=== PATIENT | female | born 1945 | race Hispanic/Latino ===

== ENCOUNTER → 2020-05-23 | Outpatient (CLI) | payer OTHER | END | disposition home or self-care (01) | LOC: RAH 10:21 | PROVIDERS: ATTEND Family Medicine | DX: Z12.31 Encounter for screening mammogram for malignant neoplasm of breast (principal); N64.89 Other specified disorders of breast | CPT/HCPCS: 77067 ==

== ENCOUNTER → 2023-01-11 | Outpatient (CLI) | payer OTHER | END | disposition home or self-care (01) | LOC: RAH 12:45 | PROVIDERS: ATTEND Family Medicine | DX: N64.4 Mastodynia (principal) | CPT/HCPCS: 77066 ==

== ENCOUNTER → 2024-01-13 | Outpatient (CLI) | payer OTHER | END | disposition home or self-care (01) | LOC: RAH 07:52 | PROVIDERS: ATTEND Family Medicine | DX: Z12.31 Encounter for screening mammogram for malignant neoplasm of breast (principal) | CPT/HCPCS: 77067 ==

== ENCOUNTER → 2024-03-12 | Outpatient (CLI) | payer OTHER | END | disposition home or self-care (01) | LOC: RAH 13:51 | PROVIDERS: ATTEND Family Medicine | DX: R60.9 Edema, unspecified (principal) | CPT/HCPCS: 93925 ==

== ENCOUNTER → 2024-04-12 | Outpatient (CLI) | payer OTHER | END | disposition home or self-care (01) | LOC: RAH 07:52 | PROVIDERS: ATTEND Family Medicine | DX: M81.0 Age-related osteoporosis without current pathological fracture (principal); Z78.0 Asymptomatic menopausal state | CPT/HCPCS: 77080 ==

== ENCOUNTER → 2025-01-14 | Outpatient (CLI) | payer OTHER ==
--- NOTE | 2025-01-14 10:16 | HMCIMG ---
Exam Type: MAMMO SCREENING BILATERAL Clinical Information: ANNUAL SCREENING Comparison: January 13, 2024 Technique: Mammogram with CAD was performed with CC and MLO projections. CAD shows no worrisome regions. FINDINGS: The breasts are heterogeneously dense, which may obscure small masses. No dominant mass or suspicious microcalcification identified. There is no nipple retraction or skin thickening. Benign-appearing calcifications are seen. CAD shows no worrisome regions. IMPRESSION: 1. No mammographic signs of malignancy. 2. Routine follow-up recommended. CATEGORY 2: BENIGN FINDINGS Note: A negative x-ray should not delay biopsy if a dominant or clinically suspicious mass is present, since 8-10% of cancers are not identified by mammography. Dense breasts may obscure an underlying neoplasm.
== END | disposition home or self-care (01) ==
LOC: RAH 09:38
PROVIDERS: ATTEND Family Medicine
DX: Z12.31 Encounter for screening mammogram for malignant neoplasm of breast (principal); R92.333 Mammographic heterogeneous density, bilateral breasts; R92.1 Mammographic calcification found on diagnostic imaging of breast
CPT/HCPCS: 77067

== ENCOUNTER → 2025-06-12 | Outpatient (CLI) | payer OTHER ==
--- NOTE | 2025-06-13 07:29 | HMCIMG ---
EXAMINATION: SPECTRAL DOPPLER ULTRASOUND EXAMINATION OF THE LEFT LOWER EXTREMITY VEINS. CLINICAL HISTORY: Swelling, to rule out DVT. COMPARISON: None provided. TECHNIQUE: Real-time ultrasound scan of the veins of the left lower extremity with color Doppler flow, spectral waveform analysis and compression. FINDINGS: DEEP VEINS: The common femoral, superficial femoral, and popliteal veins are echolucent and compressible. There is normal color Doppler flow throughout. The visualized calf veins appear patent. SUPERFICIAL VEINS: The greater saphenous vein is patent and compressible. SOFT TISSUES: No popliteal fossa cyst. There is an enlarged lymph node that measures 3.5 x 0.9 x 1.7 cm in the left inguinal region. Hilar echoes are maintained. No increased vascularity. IMPRESSION: No deep venous thrombosis evident in the left lower extremity. No superficial thrombophlebitis in the left lower extremity. Left inguinal lymphadenopathy /[place]
== END | disposition home or self-care (01) ==
LOC: RAH 14:59
PROVIDERS: ATTEND Family Medicine
DX: I82.4Z2 Acute embolism and thrombosis of unspecified deep veins of left distal lower extremity (principal); R22.42 Localized swelling, mass and lump, left lower limb
CPT/HCPCS: 93971

== ENCOUNTER → 2025-07-19 | Outpatient (CLI) | payer OTHER ==
--- NOTE | 2025-07-19 17:22 | HMCSR ---
APPROVED REPORT EXAM: Two-dimensional and M-mode echocardiogram with Doppler and color Doppler. INDICATION ICD: I10 Essential hypertension 2D Dimensions RVDd 4.0 cm LVEF(%) 62.0 (>50%) LVED Vol(simp.) 79.0 mL IVSd 1.0 (0.7-1.1cm) FS(%) 33 % LVES Vol(simp.) 25.0 mL LVDd 3.9 (3.8-5.6cm) LA (2D) 3.6 (1.6-4.0cm) LVEF(%, simp.) 68 % PWd 1.0 (0.7-1.1cm) Ao Root(2D) 3.0 (2.0-3.7cm) LA ESV INDEX (BP) 30.66 mL/m2 IVSs 1.0 cm LVOT diam 2.0 (1.8-2.4cm) LVDs 2.6 (2.5-4.0cm) IVC diam 1.7 cm PWs 1.1 cm M-Mode Dimensions EPSS 0.5 cm LA (MM) 3.7 (1.6-4.0cm) Ao Root(MM) 2.9 (2.0-3.7cm) Aortic Valve AoV Vmax 1.8 m/s Ao Peak GR 12.6 mmHg LVOT Vmax 1.5 m/s AoV VTI 0.3 m Ao Mean GR 6.1 mmHg LVOT VTI 0.29 m TITI (VMAX) 2.81 cm2 TITI (VTI) 3.1 cm2 Mitral Valve MV E Vmax 74.3 cm/s DECEL Time 273 ms MV A Vmax 105.1 cm/s P 1/2 T 49 ms E/A ratio 0.7 MVA (PHT) 4.5 cm2 TDI E/E' Medial 15.1 E/E' Lateral 11.9 Medial E' Peak V 4.93 cm/s Lateral E' Peak V 6.26 cm/s Pulmonary Valve PV Vmax 1.0 m/s PV VTI 0.21 m PV Mean GR 2.5 mmHg PV Peak GR 4.0 mmHg PI End Ynes. Kwabena 94.9 cm/s Tricuspid Valve TR Vmax 2.6 m/s RAP (EST) 3 mmHg RVSP 30.1 mmHg TR Peak GR 27.1 mmHg Left Ventricle The left ventricle is normal size. There is normal LV segmental wall motion. There is normal left ventricular wall thickness. The LVEF is > 65%. Stage I diastolic dysfunction. Right Ventricle The right ventricle is normal size. The right ventricular systolic function is normal. Atria The left atrium size is normal. The right atrium size is normal. Aortic Valve The aortic valve is trileaflet normal in structure. No aortic regurgitation is present. There is no aortic valvular stenosis. Mitral Valve The mitral valve is normal in structure. There is no mitral valve regurgitation noted. There is mild mitral valve stenosis. Tricuspid Valve The tricuspid valve is normal in structure. There is no tricuspid valve regurgitation noted. Pulmonic Valve The pulmonary valve is normal in structure. There is trace of pulmonic valvular regurgitation. Great Vessels The aortic root is normal in size. The IVC is normal in size and collapses >50% with inspiration. Pericardium There is no pericardial effusion. Other Information Quality : Technically difficult study due to body habitus Conclusion The LVEF is > 65%. There is normal LV segmental wall motion. Stage I diastolic dysfunction. The aortic root is normal in size. There is no pericardial effusion.
== END | disposition home or self-care (01) ==
LOC: RAH 13:41
PROVIDERS: ATTEND Family Medicine
DX: I05.0 Rheumatic mitral stenosis (principal); I11.9 Hypertensive heart disease without heart failure
CPT/HCPCS: 93306